=== PATIENT | male | born 1995 | race Caucasian/White ===

== ENCOUNTER 2017-07-09 09:24 | Emergency (ER) | payer OTHER ==
[2017-07-09 09:29] VITALS: RESP 18; TEMP 97.5
[2017-07-09] MEDS ORDERED: IBUPROFEN 600 MG TAB PO ONE (09:55)
[2017-07-09] MEDS ORDERED: ACETAMINOPHEN 500 MG TAB PO ONE (09:55)
--- NOTE | 2017-07-09 10:48 | EDPHY ---
H & P Stated Complaint: woke up with low back pain 07/08/17. Time Seen by Provider: 07/09/17 09:40 HPI/ROS: Chief complaint: Low back pain History of present illness: This is a 22-year-old male who presents to the emergency department for low back pain. Patient reports the onset of symptoms yesterday. He states he awoke from sleep with it. It has been persistent. The pain does not radiate. It is worsened with movement, better with rest. There are no associated signs or symptoms including no paresthesias, no saddle anesthesia, no bowel or bladder dysfunction, no paralysis, no abnormal coolness in the legs, no fever. Patient denies any history of trauma. He thinks he just slept wrong. Review of systems: A 10 point review of systems was obtained and other than described above was negative - Personal History Current Tetanus Diphtheria and Acellular Pertussis (TDAP): Yes - Medical/Surgical History Hx Asthma: No Hx Chronic Respiratory Disease: No Hx Diabetes: No Hx Cardiac Disease: No Hx Renal Disease: No Hx Cirrhosis: No Hx Alcoholism: No Hx HIV/AIDS: No Hx Splenectomy or Spleen Trauma: No Other PMH: Chronic low back pain. - Social History Smoking Status: Never smoked Additional Social History: No history of IV drug abuse - Physical Exam Exam: General Appearance: Alert, nontoxic. Eyes: Pupils equal and round no injection. Respiratory: Chest is non tender, lungs are clear to auscultation. Cardiac: regular rate and rhythm Gastrointestinal: Abdomen is soft and non tender, no masses, bowel sounds normal. Musculoskeletal: Neck is supple and non tender. The spine is nontender to palpation along its entire length. There is no crepitus, bony deformity or step -off. There is mild tenderness to the lumbar paraspinal bilaterally. Extremities have full range of motion and are non tender. Skin: No rashes or lesions. Neurological: Alert and oriented x4. Cranial nerves 2-12 grossly intact. Strength and sensation intact and symmetrical. Straight leg raise test is negative bilaterally. Patellar and Achilles reflexes 2+ and symmetrical. Patient ambulating without difficulty. Constitutional: Initial Vital Signs Temperature (C) 36.4 C 07/09/17 09:25 Heart Rate 65 07/09/17 09:25 Respiratory Rate 18 07/09/17 09:25 Blood Pressure 130/77 H 07/09/17 09:25 O2 Sat (%) 100 07/09/17 09:25 O2 Delivery Mode Room Air Allergies/Adverse Reactions: No Known Allergies Allergy (Unverified 07/09/17 09:29) Home Medications: Medication Instructions Recorded Cyclobenzaprine [Flexeril 10 MG 10 mg PO TID PRN #15 tab 07/09/17 (*)] Medical Decision Making ED Course/Re-evaluation: Patient is seen under the supervision of my secondary supervising physician Dr. Stu Wagner. Patient presents to the emergency department for evaluation of low back pain. He is nontoxic. Vital signs are stable. Physical exam is benign including a nonfocal neurologic exam. He is vascularly intact. No red flag risk factors for severe low back pain. X-rays negative. Likely musculoskeletal in nature. Will treat him conservatively at home. He is to follow up with his primary care doctor for recheck. Return precautions are given. Patient voiced understanding and agreement with plan. Differential Diagnosis: Included but not limited to lumbar sprain or strain, herniated intervertebral disc, unlikely bony fracture, cauda equina syndrome spinal cord lesion - Data Points Medications Given: Discontinued Medications Acetaminophen (Tylenol) 1,000 mg PO EDNOW ONE Stop: 07/09/17 09:56 Last Admin: 07/09/17 10:24 Dose: 1,000 mg Ibuprofen (Motrin) 600 mg PO EDNOW ONE Stop: 07/09/17 09:56 Last Admin: 07/09/17 10:24 Dose: 600 mg Departure - Departure Disposition: Home, Routine, Self-Care Clinical Impression: Low back pain Condition: Good Instructions: Acute Low Back Pain (ED) Additional Instructions: Follow-up with a primary care doctor or student [facility] for recheck Use ibuprofen 600 mg 3 times a day for the next 2-3 days for symptom control You can also use Flexeril for muscle relaxation, however you should know it is sedating If symptoms worsen or new symptoms develop including increasing pain, numbness or tingling anywhere, difficulty walking, fever or other signs or symptoms return to the emergency room for recheck immediately Referrals: NONE *PRIMARY CARE P,. [Primary Care Provider] - As per Instructions [facility] [Clinic] - As per Instructions Alejandro Cheung [place] [place] - As per Instructions Prescriptions: Cyclobenzaprine [Flexeril 10 MG (*)] 10 mg PO TID PRN #15 tab PRN Reason: Spasms
[2017-07-09 11:38] VITALS: BP 120/71; PULSE 53; O2SAT 97
== END 2017-07-09 11:38 | disposition home or self-care (01) ==
DX: M54.5 Low back pain (principal)

== ENCOUNTER 2018-01-21 13:48 | Emergency (ER) | payer OTHER ==
--- NOTE | 2018-01-21 14:36 | EDPHY ---
H & P Time Seen by Provider: 01/21/18 14:20 HPI/ROS: CHIEF COMPLAINT: [Skin infection] HISTORY OF PRESENT ILLNESS: [Patient is 22-year-old male with no significant past medical history he reports he had a spider bite 2 days ago was seen in urgent care yesterday where he was started on Keflex 500 mg tabs. He is prescribed to take twice a day and has had 3 doses the last which was this morning. He reports progression of the erythema. He denies any fever, chills, vomiting. He has no prior history of MRSA though he does report as a child approximately 5 years ago he had a possible abscess lanced on his abdomen. No and he lives with has MRSA or abscesses. He is not immunosuppressed in any way. ] REVIEW OF SYSTEMS: Constitutional: No fever, no chills. Eyes: No discharge. ENT: No sore throat. Cardiovascular: No chest pain, no palpitations. Respiratory: No cough, no shortness of breath. Gastrointestinal: No abdominal pain, no vomiting. Genitourinary: No hematuria. Musculoskeletal: No back pain. Skin: No rashes. Worsening erythema Neurological: No headache. Past Medical/Surgical History: No past surgical history No significant past medical history Smoking Status: Never smoked Physical Exam: General Appearance: Alert and no distress. Eyes: Pupils equal and round no injection. Respiratory: Chest is nontender, lungs are clear to auscultation. Cardiac: regular rate and rhythm. Gastrointestinal: Abdomen is soft and nontender, no masses, bowel sounds normal. Musculoskeletal: Neck is supple and nontender. Extremities have full range of motion and are nontender. Skin: [Patient has 2 skin lesions. First which is the medial aspect of the right forearm there is erythema and induration of approximately 1 x 2 cm without fluctuance or drainage. There is some streaking to the axilla. He has no pain with range of motion of the shoulder. Additionally there is a 2nd lesion on the right scapular region of approximately 2 x 2 cm also with no induration, fluctuance or drainage.] DIFFERENTIAL DIAGNOSIS: After history and physical exam differential diagnosis was considered for [MRSA, abscess, necrotizing fasciitis, sepsis] Constitutional: Initial Vital Signs Temperature (C) 36.9 C 01/21/18 13:57 Heart Rate 79 01/21/18 13:57 Respiratory Rate 16 01/21/18 13:57 Blood Pressure 114/86 H 01/21/18 13:57 O2 Sat (%) 98 01/21/18 13:57 O2 Delivery Mode Room Air Allergies/Adverse Reactions: No Known Allergies Allergy (Verified 01/21/18 14:42) Home Medications: Medication Instructions Recorded Cephalexin [Keflex (*)] 500 mg PO Q6H #28 cap 01/21/18 Keflex 01/21/18 Departure - Departure Disposition: Home, Routine, Self-Care Clinical Impression: Cellulitis Condition: Good Instructions: Cellulitis (ED) Additional Instructions: Please followup an 24 hr for recheck wounds. If he develops fever or chills or any worsening symptoms return to the ER. If you're not improving in 24 hr on the appropriate dose of Keflex will start 2 on additional antibiotics Referrals: Ace Ibrahim DO [Medical Doctor] - As per Instructions Prescriptions: Cephalexin [Keflex (*)] 500 mg PO Q6H #28 cap
[2018-01-21 14:54] VITALS: BP 121/75
== END 2018-01-21 14:56 | disposition home or self-care (01) ==
DX: L03.113 Cellulitis of right upper limb (principal)